=== PATIENT | female | born 1940 | race Caucasian/White ===

== ENCOUNTER → 2021-10-20 | Outpatient (CLI) | payer MEDICARE, OTHER ==
--- NOTE | 2021-10-20 10:04 | US ---
EXAMINATION TYPE: US thyroid st tissue head/neck DATE OF EXAM: 10/20/2021 COMPARISON: NONE CLINICAL HISTORY: E04.1 NONTOXIC SINGLE THYROID NODULE. Thyroid nodule. Hx ovarian cancer. Patient st ates they saw a thyroid nodule on outside CT. GLAND SIZE: Right Lobe: 5.0 x 1.7 x 1.6 cm Overall Parenchyma: heterogenous Left Lobe: 4.4 x 1.7 x 1.5 cm Overall Parenchyma: heterogeneous Isthmus Thickness: 0.29 cm NODULES RIGHT: # of nodules measured on right: 3. Additional <5 mm nodules seen. 1. 0.6 X 0.5 x 0.4 cm, upper lateral, cystic or almost completely cystic, anechoic nodule, which is wider than tall, with smooth margins, with echogenic focus. Prior size: No prior 2. 0.6 X 0.6 x 0.3 cm, upper lateral, cystic or almost completely cystic, anechoic nodule, which is wider than tall, with lobulated or irregular margins, without echogenic foci. Prior size: No prior 3. 0.4 X 0.4 x 0.4 cm, mid mid, cystic or almost completely cystic, anechoic nodule, which is as wi de as it is tall, with smooth margins, with echogenic focus. Prior size: No prior LEFT: # of nodules measured on left: 4 1. 1.2 X 0.9 x 1.0 cm, lower lateral, solid or almost completely solid, hypoechoic nodule, which is taller than wide, with smooth margins, without echogenic foci. Prior size: No prior 2. 0.2 X 0.2 x 0.2 cm, lower lateral, solid or almost completely solid, hyperechoic nodule, which is as wide as it is tall, with ill-defined margins. Prior size: No prior 3. 0.6 X 0.5 x 0.3 cm, upper medial, solid or almost completely solid, hypoechoic nodule, which is wider than tall, with smooth margins, without echogenic foci. Prior size: No prior 4. 0.5 X 0.5 x 0.5 cm, upper lateral, cystic or almost completely cystic, anechoic nodule, which is as wide as it is tall, with smooth margins, without echogenic foci. Prior size: No prior ISTHMUS: # of nodules measured in the isthmus: 0 Bilateral neck scanned, hypoechoic area seen with hyperechoic center seen within the left neck: 1.0 x 0.9 x 0.4 cm. IMPRESSION: Thyromegaly correlate for thyroiditis. There is a tiny red level TR 5 nodule for which FNA biopsy rec ommended. Corresponds to the 1.2 cm left thyroid nodule. 2017 ACR TI-RADS LEVEL: TI-RADS 5 - Highly Suspicious: Follow if > 0.5 cm, FNA if > 1.0 cm *Highest TI-RADS level nodule reported
== END | disposition home or self-care (01) ==
LOC: RADUSWWP 08:44
PROVIDERS: ATTEND Obstetrics & Gynecology
DX: E04.2 Nontoxic multinodular goiter (principal)
CPT/HCPCS: 76536

== ENCOUNTER 2023-01-12 12:43 | Day surgery (SDC) | payer MEDICARE ==
[2023-01-12 13:28] VITALS: PULSE 70; RESP 16; TEMP 98
[2023-01-12 13:38] VITALS: BP 195/91
--- NOTE | 2023-01-12 14:21 | US ---
ULTRASOUND GUIDED FNA THYROID BIOPSY: CLINICAL HISTORY: Left thyroid nodule FINDINGS: Preliminary imaging demonstrated the small nodule to be below the level of the clavicle and difficult to visualize. The patient wished to defer the procedure and have a follow-up ultrasound. IMPRESSION: 1. Discontinued ultrasound guided FNA thyroid biopsy. The nodule is below the level of the clavicle a nd difficult to visualize with ultrasound. The patient was to defer biopsy. Recommend follow-up 3-[address] to confirm stability.
== END 2023-01-12 14:15 | disposition home or self-care (01) ==
LOC: RADPROMAIN 12:43
PROVIDERS: ATTEND Family Medicine
DX: Z53.8 Procedure and treatment not carried out for other reasons (principal); E04.1 Nontoxic single thyroid nodule
CPT/HCPCS: 76536